=== PATIENT | male | born 1955 | race Caucasian/White ===

== ENCOUNTER → 2017-03-04 | Outpatient (REF) ==
--- NOTE | 2017-03-04 15:44 | REP ---
RIGHT ANKLE SERIES: Four views of the right ankle are performed. 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 There is no acute fracture or dislocation. The ankle mortise is anatomic. One of the metallic screws in the distal tibia extends into the adjacent fibula. IMPRESSION: Metallic internal fixation distal tibia. No other abnormalities. Signed by Trea Parker MD 03/05/2017 05:34 P
--- NOTE | 2017-03-04 16:47 | REP ---
RIGHT KNEE SERIES: Five view of the right knee are performed. There is no acute fracture or dislocation. Intramedullary rhett is seen in the tibia with two metallic screws in the proximal tibia. There is an old healed fracture of the proximal fibula. The medial joint space is slightly narrowed. IMPRESSION: Mild degenerative changes medial joint. Metallic internal fixation in the proximal tibia. Signed by Tera Parker MD 03/05/2017 05:36 P
== END ==
LOC: M SMT 13:18
PROVIDERS: ATTEND Internal Medicine
DX: M54.5 Low back pain (principal)